=== PATIENT | female | born 2000 | race Caucasian/White ===

== ENCOUNTER 2021-01-20 21:12 | Inpatient (IN) ==
[2021-01-20 22:03] LABS: Cocaine Ur Negative (NEGATIVE); Urine Barbiturate Negative (NEGATIVE); Urine Benzodiazepines Negative (NEGATIVE); Urine Opiates Negative (NEGATIVE); Urine PCP Negative (NEGATIVE)
[2021-01-20 22:04] LABS: Urine THC Negative (NEGATIVE)
[2021-01-20 22:28] LABS: Random Urine Total Protein 21.5 mg/dL (0-12)
[2021-01-20 22:35] LABS: Hematocrit 30.8 % (37.0-47.0); Hemoglobin 10.7 gm/dL (12.5-16.0); Mean Cell Volume 88.5 fl (78-100); Mean Corpuscular Hemoglobin 30.7 pg (27-31); Mean Corpuscular Hgb Conc 34.7 g/dl (32-36); Mean Platelet Volume 10.2 fl (8-12.5); Platelet Count 145 K/mm3 (150-450); Red Blood Count 3.48 M/mm3 (4.2-5.4); Red Cell Distribution Width 12.4 % (11.5-14.0); White Blood Count 12.2 K/mm3 (4.0-10.5)
[2021-01-20 22:44] LABS: Albumin * 2.8 gm/dl (3.4-5.0); Anion Gap 14.3 mmol/L (6.8-13.8); BUN/Creatinine Ratio 7.1 (9.0-21.6); Bilirubin, Total 0.5 mg/dL (0.0-1.1); Ca. Corrected For Albumin 8.8 mg/dL (8.4-10.2); Calcium * 8.2 mg/dL (7.9-10.9); Carbon Dioxide 21.9 mmol/L (24-32.6); Potassium 3.2 mmol/L (3.4-4.6); Total Protein 6.3 gm/dL (6.2-8.2)
[2021-01-20 23:08] LABS: Total Cells Counted 100
[2021-01-20 23:12] LABS: Basophil 1 % (0-1); Immature Granulocyte 2 (0-1); Lymphocyte 23 % (20-51); Monocyte 2 % (0-9); Neutrophil 72 % (42-75); Neutrophil # 8.8 K/mm3 (1.3-6.0)
[2021-01-20 23:13] LABS: Platelet Estimate Decreased (NORMAL)
[2021-01-20 23:14] LABS: RBC Morphology Normal (NORMAL)
[2021-01-20] MEDS ORDERED: RINGER'S SOLUTION,LACTATED 1,000 ML IV ONE (23:43)
[2021-01-20] MEDS ORDERED: ONDANSETRON 4 MG TAB.RAPDIS PO PRN (23:43)
[2021-01-21] MEDS ORDERED: DEXTROSE 5%-LACTATED RINGERS 1,000 ML IV PRN (00:37)
[2021-01-21] MEDS: OXYTOCIN/0.9 % SODIUM CHLORIDE 30 UNITS/500 ML BAG IV ONE (00:56)
[2021-01-21] MEDS: MISOPROSTOL 100 MCG TABLET VG PRN ×2 (08:50→13:10)
--- NOTE | 2021-01-21 09:20 | HP ---
Chief Complaint - Chief Complaint Date of Service: 01/21/21 Time of Service: 09:02 Chief Complaint: LOF, contractions History of Present Illness: 20 yo at 38w1d presented to L&D complaining of LOF around 1999 last pm with painful contractions q15m. Patient denies headache, visual changes, epigastric pain, or edema. Patient had elevated blood pressures the week prior in the office with negative preeclamptic labs. She presented to labor and delivery today with intermittent elevated blood pressures as well. This complicated by anxiety, depression, hyperemesis, THC use, tobacco abuse, and psychosocial issues. Rh- Rubella immune GBS negative Medical History (Last Reviewed 01/21/21 @ 09:10 by Zoran Rsuso DO) Hyperemesis gravidarum with dehydration (Acute) Intractable nausea and vomiting (Acute) Marijuana use (Chronic) counseled 06/22/20 Tobacco abuse (Chronic) counseled 06/22/20 Anxiety Depression Dyslexia Surgical History: Surgical History (Last Reviewed 01/21/21 @ 09:10 by Zoran Russo DO) History of placement of ear tubes Onset Date: Unknown History of tonsillectomy Family History: Family History (Last Reviewed 01/21/21 @ 09:10 by Zoran Russo DO) Grandmother Diabetes Anxiety and depression Grandfather Myocardial infarction Grandfather CVA (cerebral vascular accident) Father Hypertension Mother Anxiety and depression Father Hypertension Social History: (Last Reviewed 01/21/21 @ 09:10 by Zoran Russo DO) Social History: Marital status: Single household members: family current occupational status: employed 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 current occupational exposures/hazards: No Highest level of school completed/degree received: GED or equivalent Service: No Tobacco: Smoking Status: Current some day smoker tobacco type: cigarettes Smoking cigarettes per day: 4 Smoking End Date: 06/29/20 quit status: has quit before counseling given: provider counseling Smoking risk assessment performed?: Yes Alcohol: alcohol intake: former alcohol intake frequency: holiday/special occasion details: none since LMP Substance Use: substance use type: marijuana counseling provided: provider counseling counseling given: Yes Dietary Habits: caffeine: Yes caffeine comment: 1 daily Type: carbonated beverages Review Of Systems (GEN) - Review of Systems Generalized/Overall Review: Present: No Symptoms Reported EENTM: Present: No Symptoms Reported Respiratory: Present: No Symptoms Reported Cardiac: Present: No Symptoms Reported Abdominal: Present: Other - irregular painful contractions Genitourinary: Present: Other - LOF around 2000 x 2. Musculoskeletal: Present: No Symptoms Reported Neurological: Present: No Symptoms Reported Skin: Present: No Symptoms Reported Endocrine: Present: No Symptoms Reported Immunizations: IMMUNIZATION HX Immunizations Up to Date Yes History of Influenza Vaccine No Hx Pneumococcal Vaccination No Allergies/Adverse Reactions: Allergies Allergy/AdvReac Type Severity Reaction Status Date / Time metoclopramide [From Reglan] AdvReac Mild flushing, Verified 01/18/21 11:18 feels "feverish" Home Medications: HOME MEDICATIONS hydroxyzine pamoate 25 mg capsule 25 mg PO Q4H PRN #30 cap 11/14/20 [Last Taken 12/12/20 23:00] sertraline 100 mg tablet 100 mg PO DAILY 11/16/20 [Last Taken 12/12/20 23:00] Vits96/Iron Fum/Folic [ S] 1 tab PO DAILY 12/13/20 [Last Taken 12/12/20 22:00] Famotidine [Pepcid AC] 10 mg PO PRN PRN 01/07/21 [Last Taken Unknown] Exam - Exam Vital Signs: Vital Signs - Last Taken Temp 36.3 C 01/20/21 21:23 Pulse 92 01/20/21 21:23 Resp 16 01/20/21 21:23 BP 138/92 H 01/20/21 21:23 Pulse Ox 99 01/20/21 21:23 Constitutional: Present: Alert, Oriented x3, Cooperative, No distress ENT Exam: Present: hearing grossly normal Neck: Present: non-tender, supple. Absent: thyromegaly Breasts: Present: Exam deferred Respiratory: Present: lungs clear, no respiratory distress Cardiovascular/Chest: Present: normal peripheral pulses, regular rate, rhythm, no edema Abdomen: Present: soft, nontender, no rebound tenderness, other - gravid /Rectal: Present: Other - Cervix - FT/50/-4, ROM test negative, no pooling. Extremity: Present: no pedal edema, no calf tenderness Skin Exam: Present: normal color, warm/dry, no cyanosis Lymphatic: Present: no adenopathy Neurologic: Present: alert - DTR 2/4, no clonus, normal mood/affect, other Appearance: Present: appropriate appearance, appropriate insight Eye contact: Present: cooperative, good eye contact Thoughts: Present: normal thought pattern, normal mood /affect Diagnostic Studies: Abnormal Lab Results 01/20/21 01/20/21 01/20/21 Range/Units 20:21 22:25 22:25 WBC 12.2 H (4.0-10.5) K/mm3 RBC 3.48 L (4.2-5.4) M/mm3 Hgb 10.7 L (12.5-16.0) gm/dL Hct 30.8 L (37.0-47.0) % Plt Count 145 L (150-450) K/mm3 Immature Granulocytes 2 H (0-1) Neutrophils # (Manual) 8.8 H (1.3-6.0) K/mm3 Platelet Estimate Decreased L (NORMAL) Potassium 3.2 L D (3.4-4.6) mmol/L Carbon Dioxide 21.9 L (24-32.6) mmol/L Anion Gap 14.3 H (6.8-13.8) mmol/L Est GFR (Non-Af Amer) 145 H D (60-130) mL/min BUN/Creatinine Ratio 7.1 L (9.0-21.6) Albumin 2.8 L (3.4-5.0) gm/dl U Random Total Protein 21.5 H (0-12) mg/dL U [place] Prot/Creat Ratio 265 H (0-199) mg/gm Laboratory Results WBC 12.2 K/mm3 (4.0-10.5) H 01/20/21 22:25 RBC 3.48 M/mm3 (4.2-5.4) L 01/20/21 22:25 Hgb 10.7 gm/dL (12.5-16.0) L 01/20/21 22:25 Hct 30.8 % (37.0-47.0) L 01/20/21 22:25 MCV 88.5 fl (78-100) 01/20/21 22:25 MCH 30.7 pg (27-31) 01/20/21 22:25 MCHC 34.7 g/dl (32-36) 01/20/21 22:25 RDW 12.4 % (11.5-14.0) 01/20/21 22:25 Plt Count 145 K/mm3 (150-450) L 01/20/21 22:25 MPV 10.2 fl (8-12.5) 01/20/21 22:25 Neutrophils % (Manual) 72 % (42-75) 01/20/21 22:25 Lymphocytes % (Manual) 23 % (20-51) 01/20/21 22:25 Monocytes % (Manual) 2 % (0-9) 01/20/21 22:25 Basophils % (Manual) 1 % (0-1) 01/20/21 22:25 Immature Granulocytes 2 (0-1) H 01/20/21 22:25 Neutrophils # (Manual) 8.8 K/mm3 (1.3-6.0) H 01/20/21 22:25 Lymphocytes # (Manual) 2.8 k/mm3 (1.5-3.5) 01/20/21 22:25 Monocytes # (Manual) 0.2 k/mm3 (0.0-1.0) 01/20/21 22:25 Basophils # (Manual) 0.1 k/mm3 (0.0-0.1) 01/20/21 22:25 Platelet Estimate Decreased (NORMAL) L 01/20/21 22:25 RBC Morphology Normal (NORMAL) 01/20/21 22:25 Sodium 138 mmol/L (132-142) 01/20/21 22:25 Plasma Sodium 138 mmol/L (130-142) 01/20/21 22:25 Potassium 3.2 mmol/L (3.4-4.6) L D 01/20/21 22:25 Chloride 105 mmol/L (97-106) 01/20/21 22:25 Carbon Dioxide 21.9 mmol/L (24-32.6) L 01/20/21 22:25 Anion Gap 14.3 mmol/L (6.8-13.8) H 01/20/21 22:25 BUN 4 mg/dL (3-23) 01/20/21 22:25 Creatinine 0.56 mg/dL (0.4-1.4) 01/20/21 22:25 Est GFR (Non-Af Amer) 145 mL/min (60-130) H D 01/20/21 22:25 BUN/Creatinine Ratio 7.1 (9.0-21.6) L 01/20/21 22:25 Random Glucose 81 mg/dL (70-110) 01/20/21 22:25 Calcium 8.2 mg/dL (7.9-10.9) 01/20/21 22:25 Calcium Adj for Albumin 8.8 mg/dL (8.4-10.2) 01/20/21 22:25 Total Bilirubin 0.5 mg/dL (0.0-1.1) 01/20/21 22:25 AST 16 U/L (0-48) 01/20/21 22:25 ALT 20 U/L (19-67) 01/20/21 22:25 Alkaline Phosphatase 129 U/L (50-170) 01/20/21 22:25 Total Protein 6.3 gm/dL (6.2-8.2) 01/20/21 22:25 Albumin 2.8 gm/dl (3.4-5.0) L 01/20/21 22:25 Ur Random Creatinine 81.1 mg/dL (60-200) 01/20/21 20:21 U Random Total Protein 21.5 mg/dL (0-12) H 01/20/21 20:21 U [place] Prot/Creat Ratio 265 mg/gm (0-199) H 01/20/21 20:21 Membranes Rupture Negative (Negative) 01/20/21 21:19 Urine Opiates Screen Negative (NEGATIVE) 01/20/21 20:21 Barbiturate Screen Negative (NEGATIVE) 01/20/21 20:21 Ur Phencyclidine Scrn Negative (NEGATIVE) 01/20/21 20:21 Urine Amphetamine Negative (NEGATIVE) 01/20/21 20:21 U Benzodiazepines Scrn Negative (NEGATIVE) 01/20/21 20:21 Urine Cocaine Screen Negative (NEGATIVE) 01/20/21 20:21 Urine Marijuana (THC) Negative (NEGATIVE) 01/20/21 20:21 Assessment/Plan - Assessment/Plan (1) Gestational hypertension Assessment: Admit for induction of labor due to elevated blood pressures without significant proteinuria. Epidural as needed. Monitor closely for severe features of preeclampsia. Problem: Acute Qualifiers: Trimester: third trimester Qualified Code(s): O13.3 - Gestational [-induced] hypertension without significant proteinuria, third trimester (2) Anxiety Problem: Chronic (3) Depression Problem: Chronic Qualifiers: Depression Type: unspecified Qualified Code(s): F32.9 - Major depressive disorder, single episode, unspecified (4) Hyperemesis gravidarum with dehydration Problem: Resolved (5) Marijuana use Problem: Resolved (6) Tobacco abuse Problem: Resolved
--- NOTE | 2021-01-21 09:32 | PN ---
Progess Note - Interim Date: 01/21/21 Time: 09:20 Narrative: 01/21/21 09:20 Patient rating her contractions 7 out of 10 but appears very comfortable. Vital signs stable with occasional elevated blood pressure in the mild range since admission. Status post Cytotec 25 mcg per vagina x1 at 0850. Patient was started on Pitocin around midnight and titrated up to 10 milliunits/min. She was not making cervical change in contractions still appeared irregular so it was discontinued to allow for cervical ripening. FHT: 145 baseline, reassuring contractions irregular Cervix: Fingertip/50/-4. Cephalic presentation confirmed with bedside ultrasound. Impression: Intrauterine at 38 1/7 weeks induction of labor for gestational hypertension. Plan: 25 mcg of Cytotec placed. We will continue with induction of labor and observe closely for severe features.
--- NOTE | 2021-01-21 16:22 | PN ---
Progess Note - Interim Date: 01/21/21 Time: 16:08 Narrative: 01/21/21 16:08 Patient rating contractions 7 out of 10 still but appears very comfortable. Status post Cytotec x2 doses (last dose given at around 1310). heart tones 140 with moderate variability, good accelerations, and rare v ariable late decelerations. Cervix-/50/-3 24 [place] Chris catheter inserted into cervix with balloon inflated to 75 mL with normal saline. Impression: 38 1/7-week intrauterine being induced for gestational hypertension. Plan: Continue with present plan.
[2021-01-21] MEDS ORDERED: ONDANSETRON HCL/PF 2 MG/ML VIAL IV PRN (19:52)
[2021-01-21] MEDS ORDERED: NALOXONE HCL 1 MG/1 ML SYRG IV PRN (19:52)
[2021-01-21] MEDS ORDERED: fentaNYL CITRATE/PF 50 MCG/ML AMPUL IT SCH (20:00)
--- NOTE | 2021-01-21 20:37 | ANES ---
Anesthesia Pre Procedure Eval Vitals/Labs: Last Vital Signs Temp 36.3 C 01/20/21 21:23 Pulse 92 01/20/21 21:23 Resp 16 01/20/21 21:23 BP 138/92 H 01/20/21 21:23 Pulse Ox 99 01/20/21 21:23 HOME MEDICATIONS hydroxyzine pamoate 25 mg capsule 25 mg PO Q4H PRN #30 cap 11/14/20 [Last Taken 12/12/20 23:00] sertraline 100 mg tablet 100 mg PO DAILY 11/16/20 [Last Taken 12/12/20 23:00] Vits96/Iron Fum/Folic [ S] 1 tab PO DAILY 12/13/20 [Last Taken 12/12/20 22:00] Famotidine [Pepcid AC] 10 mg PO PRN PRN 01/07/21 [Last Taken Unknown] Allergies/Adverse Reactions: Allergies Allergy/AdvReac Type Severity Reaction Status Date / Time metoclopramide [From Reglan] AdvReac Mild flushing, Verified 01/18/21 11:18 feels "feverish" - Planned Procedure Planned Procedure: labor Medication List Reviewed:: Yes Allergies Verified: Yes Medical History (Last Reviewed 01/21/21 @ 20:36 by Nir Delgado CRNA) Hyperemesis gravidarum with dehydration (Resolved) Intractable nausea and vomiting (Acute) Marijuana use (Resolved) counseled 06/22/20 Tobacco abuse (Resolved) counseled 06/22/20 Anxiety Depression Dyslexia Surgical History (Last Reviewed 01/21/21 @ 20:36 by Nir Delgado CRNA) History of placement of ear tubes Onset Date: Unknown History of tonsillectomy Family History (Last Reviewed 01/21/21 @ 20:36 by Nir Delgado CRNA) Grandmother Diabetes Anxiety and depression Grandfather Myocardial infarction Grandfather CVA (cerebral vascular accident) Father Hypertension Mother Anxiety and depression Father Hypertension - Family Anesthesia History Family History:: no untoward family reactions to anesthesia, no familial bleeding tendencies, no family history of clotting disorders, no family history of premature - Airway/Neck/Teeth Within Normal Limits:: Yes Teeth Condition: intact Mallampatti Score: 2 Thyromental (T-M) distance: > 6 cm Mandibulo Hyoid distance: > 3 cm - Respiratory Respiratory Physical: lungs clear Sleep Apnea currently treated: No Sleep Apnea by current assessment: No - Cardiovascular Tolerate Activity: Fair Heart Sounds: S1 & S2, Regular - Gastrointestinal NPO since: 2400 - Anesthesia Assessment and Plan ASA Class: PS, II Anesthesia Type Plan: Epidural - CSE for labor analgesia
--- NOTE | 2021-01-21 20:55 | ANES ---
Post Anesthesia Discharge - Transfer of Care Transfer of Care handoff given to nurse: Yes - Discharge from PACU Discharge from PACU when meets criteria: Yes - Comfortable post CSE.
--- NOTE | 2021-01-21 20:58 | ANES ---
Anesthesia Procedure Note Procedure Note: ANESTHESIA PROCEDURE NOTE Date of Procedure: 01/21/2021 Time of procedure: 2034. Performed by: SHARON Solis CRNA, MSN Director Of Quality Improvement: Radha Buckner RN. Preprocedure diagnosis: Active labor, labor pain. Post procedure diagnosis: Same. Procedure:Epidural for labor analgesia L3-4. Indications: Labor pain. Findings: See below. Details of the procedure: The patient was placed on the side of the bed in sitting positionand prepped with DuraPrep then draped in a sterile fashion. Lidocaine 1% was infiltrated to the skin and subcutaneous tissues at the level of the L3-4 interspace. An 18-gauge Touhy needle was used to approach the epidural space with loss of resistance technique. Once loss of resistance was achieved a 27-gauge spinal needle was passed through the epidural needle and CSF was contacted. After CSF returned, 20 mcg of fentanyl was injected in the spinal needle was removed the epidural catheter was then threaded approximately 4 cm in the epidural needle was removed. The catheter was taped in place and after careful aspiration 3 mL of 1.5% lidocaine with 1-200,000 epinephrine was injected without change in maternal heart rate or sensorium. . EBL: Minimal. Fluids: N/A. Specimen: N/A. Post procedure condition: The patient tolerated the procedure well with good relief. No complications were noted. Thank you for this consultation. Nir Delgado CRNA, ARNP, MSN
--- NOTE | 2021-01-21 21:06 | ANES ---
Post Anesthesia Assessment - Vital Signs Vitals: Last Vital Signs Temp 36.3 C 01/20/21 21:23 Pulse 92 01/20/21 21:23 Resp 16 01/20/21 21:23 BP 138/92 H 01/20/21 21:23 Pulse Ox 99 01/20/21 21:23 Airway Patency: Normal - Mental Status Level Of Consciousness: Awake, Alert, Appropriate - Pain Level Pain Score: 0 - N/V Assessment Nausea/Vomiting Presence: None Dehydration:: No
[2021-01-21] MEDS: BUPIVACAINE HCL/0.9 % NACL/PF 250 ML EP PRN (21:09)
[2021-01-22] MEDS: MISOPROSTOL 100 MCG TABLET VG PRN ×2 (00:07→04:36)
[2021-01-22] MEDS ORDERED: DEXTROSE 5%-LACTATED RINGERS 1,000 ML IV PRN (06:40)
[2021-01-22] MEDS ORDERED: ACETAMINOPHEN 500 MG TABLET PO ONE (06:41)
--- NOTE | 2021-01-22 09:18 | PN ---
Progess Note - Interim Date: 01/22/21 Time: 09:15 Narrative: 01/22/21 09:15 Patient comfortable with epidural Vital signs stable. Status post Cytotec x4 doses, cervical Chris bulb fell out around 4:30 AM FHT: 150 baseline, minimum variability with good accelerations and rare mild variable deceleration contractions q 2-3 min Cervix: 5-6/80/-2, [id number], IUPC placed due to poor ability to belt picker contractions Impression: Intrauterine at 38 2/7 weeks induction of labor for gestat ional hypertension. Plan: Continue present plan
[2021-01-22] MEDS ORDERED: POTASSIUM CHLORIDE 20 MEQ TABLET.SA PO ONE (11:08)
[2021-01-22] MEDS ORDERED: SODIUM BICARBONATE 650 MG TABLET PO ONE (11:30)
[2021-01-22] MEDS: OXYTOCIN/0.9 % SODIUM CHLORIDE 30 UNITS/500 ML BAG IV ONE (12:53)
[2021-01-22] MEDS: BUPIVACAINE HCL/0.9 % NACL/PF 250 ML EP PRN (15:00)
[2021-01-22] MEDS ORDERED: GLYCERIN/WITCH HAZEL LEAF 40 APPL BOX TP PRN (17:51)
[2021-01-22] MEDS ORDERED: oxyCODONE HCL/ACETAMINOPHEN 1 TAB TABLET PO PRN (17:51)
[2021-01-22] MEDS ORDERED: BISACODYL 10 MG SUPP.RECT RC PRN (17:51)
[2021-01-22] MEDS ORDERED: HYDROCORTISONE 30 APPL TUBE TP PRN (17:51)
[2021-01-22] MEDS ORDERED: OXYTOCIN/0.9 % SODIUM CHLORIDE 30 UNITS/500 ML BAG IV ONE (17:51)
[2021-01-22] MEDS ORDERED: SENNOSIDES 8.6 MG TABLET PO PRN (17:51)
[2021-01-22] MEDS ORDERED: IBUPROFEN 800 MG TABLET PO PRN (17:51)
[2021-01-22] MEDS ORDERED: BENZOCAINE/MENTHOL 81 SPRAY CAN TP PRN (17:51)
[2021-01-22] MEDS ORDERED: hydrOXYzine PAMOATE 25 MG CAPSULE PO PRN (17:54)
--- NOTE | 2021-01-22 17:54 | OR ---
Operative Report - Dictated Report Narrative: Spontaneous vaginal delivery of vigorously crying viable female at 1730 on 01/22/2021 with Apgars 8 and 9, weighing 3148 g and TERRY position with right hand at face. Cord clamping delayed approximately 1 minute Placenta delivered complete, intact, with three vessel cord Estimated blood loss: 150 mL Anesthesia: Epidural Lacerations: None History for MU History for Definition: * The number of deliveries resulting in a live the patient experienced prior to current hospitalization * The previous delivery of live twins or any live multiple gestation is considered one live event. *If primagravida or nulliparous is documented select zero for the number of previous live births. Live Events: Live Events: 1
[2021-01-22] MEDS: DOCUSATE SODIUM 100 MG CAPSULE PO SCH (21:25)
--- NOTE | 2021-01-23 08:50 | PN ---
Subjective - Date and Time Seen Date: 01/23/21 Time: 08:48 Objective - Vitals Vitals: Last Vital Signs Temp 36.0 C 01/23/21 07:11 Pulse 73 01/23/21 07:11 Resp 18 01/23/21 07:11 BP 133/74 01/23/21 07:11 Pulse Ox 100 01/23/21 07:11 Patient denies complaints. Specifically denies headache, visual changes, or epigastric pain. Breast-feeding. Lochia wnl abdomen - soft, nontender Uterus -firm, at umbilicus - 1 No calf tenderness Impression: day #1 - s/p spontaneous vaginal delivery. Gestational hypertension-resolved Plan: Continue routine care Cauti Physician Documentation - Urinary Catheter Management Urethral (Chris) Date of Insertion: 01/21/21 Time of Insertion: 21:21 Date of Removal: 01/20/21 Time of Removal: 17:15 Assessment/Plan - Problems/Diagnosis (1) Gestational hypertension Problem: Resolved Qualifiers: Trimester: third trimester Qualified Code(s): O13.3 - Gestational [-induced] hypertension without significant proteinuria, third trimester (2) Anxiety Problem: Chronic (3) Depression Problem: Chronic Qualifiers: Depression Type: unspecified Qualified Code(s): F32.9 - Major depressive disorder, single episode, unspecified (4) Hyperemesis gravidarum with dehydration Problem: Resolved (5) Marijuana use Problem: Resolved (6) Tobacco abuse Problem: Resolved
[2021-01-23] MEDS: SERTRALINE HCL 100 MG TABLET PO SCH (09:28)
[2021-01-23] MEDS: DOCUSATE SODIUM 100 MG CAPSULE PO SCH ×2 (09:28→20:45)
[2021-01-23] MEDS: PRENATAL VITS96/IRON FUM/FOLIC 1 TAB TABLET PO SCH (09:28)
[2021-01-23] MEDS: IBUPROFEN 800 MG TABLET PO PRN ×2 (14:46→20:45)
[2021-01-24] MEDS: IBUPROFEN 800 MG TABLET PO PRN ×2 (03:01→12:15)
[2021-01-24 08:13] VITALS: BP 134/74
[2021-01-24] MEDS: SERTRALINE HCL 100 MG TABLET PO SCH (10:48)
[2021-01-24] MEDS: PRENATAL VITS96/IRON FUM/FOLIC 1 TAB TABLET PO SCH (10:48)
[2021-01-24] MEDS: DOCUSATE SODIUM 100 MG CAPSULE PO SCH (10:48)
--- NOTE | 2021-01-24 17:10 | PN ---
Subjective - Date and Time Seen Date: 01/24/21 Time: 12:30 Objective - Vitals Vitals: Last Vital Signs Temp 36.6 C 01/24/21 07:49 Pulse 72 01/24/21 07:49 Resp 18 01/24/21 07:49 BP 134/74 01/24/21 07:49 Pulse Ox 100 01/24/21 07:49 Patient denies complaints. Breast-feeding. Lochia wnl abdomen - soft, nontender Uterus -firm, at umbilicus - 2 No calf tenderness Impression: day #2 - s/p spontaneous vaginal delivery. Gestational hypertension-resolved. Plan: Routine discharge instructions. Preeclampsia precautions. Cauti Physician Documentation - Urinary Catheter Management Urethral (Chris) Date of Insertion: 01/21/21 Time of Insertion: : Date of Removal: 01/20/21 Time of Removal: 17:15 Assessment/Plan - Problems/Diagnosis (1) Vaginal delivery Problem: Resolved (2) Gestational hypertension Problem: Resolved Qualifiers: Trimester: third trimester Qualified Code(s): O13.3 - Gestational [-induced] hypertension without significant proteinuria, third trimester (3) Anxiety Problem: Chronic (4) Depression Problem: Chronic Qualifiers: Depression Type: unspecified Qualified Code(s): F32.9 - Major depressive disorder, single episode, unspecified (5) Hyperemesis gravidarum with dehydration Problem: Resolved (6) Marijuana use Problem: Resolved (7) Tobacco abuse Problem: Resolved
--- NOTE | 2021-01-24 17:15 | DS ---
OB Discharge Summary (1) Vaginal delivery Status: Resolved (2) Gestational hypertension Status: Resolved Qualifiers: Trimester: third trimester Qualified Code(s): O13.3 - Gestational [-induced] hypertension without significant proteinuria, third trimester (3) Anxiety Status: Chronic (4) Depression Status: Chronic Qualifiers: Depression Type: unspecified Qualified Code(s): F32.9 - Major depressive disorder, single episode, unspecified (5) Hyperemesis gravidarum with dehydration Status: Resolved (6) Marijuana use Status: Resolved (7) Tobacco abuse Status: Resolved Delivery Date: 01/22/21 Delivery Time: 17:30 :: 1 Para:: 1 Gestational weeks:: 38 Gestational days:: 2 Intrapartum Procedures: Spontaneous Vaginal Delivery, Delivered, Anesthesia - Epidural, Other - Cervical Chris bulb for cervical ripening. Intrauterine pressure catheter. /OP Complications: GHTN Discharge Diagnosis: Term -Delivered - Discharge Information Date of Discharge: 01/24/21 Hospital Course: 20-year-old 1 now para 1 admitted at 38 1 7 weeks for induction of labor due to gestational hypertension. Induction took 2 days requiring 4 doses of Cytotec, cervical Chris bulb, and Pitocin augmentation of labor. Her delivery and course were uneventful. She was discharged to home with routine discharge instructions and preeclampsia precautions. She was instructed to take her blood pressure 1-2 times per day and call for severe range blood pressures. Follow-up in the office in 1 week for blood pressure check. Discharge Location: Home Disposition: Home self-care Condition: Stable Referrals: Celso Ray MD [Primary Care Provider] - Activity on Discharge:: Activity as tolerated, Pelvic Rest Discharge Diet: General/regular food Additional Patient Instructions (free text): Lexys your four week post check up is on February 05 at 2:15 PM with . Libia's follow up appointment is tomorrow, 01/25/21 at 12:15 PM with . Rest frequently and drink plenty of fluids. Please call [facility] at [phone], [facility] at [phone], or [facility] at [phone] with any questions or concerns. Thank you for choosing [facility] to deliver your baby. Libia's blood type: O- Discharge weight: 2908 grams or 6 lbs 6.5 ounces Discharge bilirubin: 9.9 at 35 hours Prescriptions (Any new or edited meds): Ferrous Sulfate 325 mg PO DAILY #60 tab Ibuprofen [Motrin] 200 - 800 mg PO Q6H PRN #100 tab PRN Reason: Pain Complete Home Medications List: Complete Home Medication List: hydroxyzine pamoate 25 mg capsule 25 mg PO Q4H PRN #30 cap 11/14/20 sertraline 100 mg tablet 100 mg PO DAILY 11/16/20 Vits96/Iron Fum/Folic [ S] 1 tab PO DAILY 12/13/20 Ferrous Sulfate 325 mg PO DAILY #60 tab 01/23/21 Ibuprofen [Motrin] 200 - 800 mg PO Q6H PRN #100 tab 01/23/21 - Plan Discharge to:: Home Follow up in office in:: 1 week - Information Weight (Grams): 3,148 Sex: Female Score 1 min: 8 Score 5 min: 9 Complications: None
== END 2021-01-24 12:00 | disposition home or self-care (01) | DRG 807 ==
LOC: OBCLINIC 21:12 → OB 23:15
PROVIDERS: ADMIT Obstetrics & Gynecology; ATTEND Obstetrics & Gynecology